=== PATIENT | female | born 1975 | race Caucasian/White ===

== ENCOUNTER 2023-07-19 18:32 | Emergency (ER) | payer OTHER, BC ==
[2023-07-19] MEDS ORDERED: HYDROcodone/Acetaminophen 10/325 mg Tablet ONE (20:03)
== END 2023-07-19 20:25 | disposition home or self-care (01) ==
LOC: ERS 18:32
DX: S52.502A Unspecified fracture of the lower end of left radius, initial encounter for closed fracture (principal); E03.9 Hypothyroidism, unspecified; K21.9 Gastro-esophageal reflux disease without esophagitis; Z79.899 Other long term (current) drug therapy; V89.2XXA Person injured in unspecified motor-vehicle accident, traffic, initial encounter
CPT/HCPCS: 29075

== ENCOUNTER 2023-08-01 10:25 | Outpatient (CLI) | payer BC ==
[2023-08-01 12:24] LABS: #Basophils 0.1 10x3/uL (0.0-0.2); #Eosinphils 0.1 10x3/uL (0.0-0.5); #Monocytes 0.7 10x3/uL (0.0-1.1); #Neutrophils 5.2 10x3/uL (1.5-8.4); %Basophils 0.9 % (0.0-2.0); %Eosinophils 0.9 % (0.0-6.0); %Lymphocytes 27.9 % (18.0-47.0); %Monocytes 8.3 % (0.0-10.0); %Neutrophils 61.3 % (40.0-75.0); Mean Corpuscular HGB CONC 32.5 g/dL (32.0-36.0); Mean Corpuscular Hemoglobin 28.6 pg (27.0-33.0); Mean Corpuscular Volume 88.1 fl (81.6-98.3); Mean Platelet Volume 9.6 fl (7.4-10.4); Platelet Count 290 10x3/uL (150-450); RBC Distribution Width 13.7 % (11.5-14.5); Red Blood Cell (RBC) Count 4.54 10x6/uL (3.90-5.03); White Blood Cell (WBC) Count 8.5 10x3/uL (3.5-10.5)
[2023-08-01 12:46] LABS: Anion Gap 16 mmol/L (10-20); BUN (Urea Nitrogen) 11 mg/dL (7.0-18.7); Calc. Creatinine Clearance 0 mL/min (70-130); Calcium 9.7 mg/dL (7.8-10.44); Carbon Dioxide 23 mmol/L (22-29); Chloride 106 mmol/L (98-107); Estimated GFR 92; Glucose 77 mg/dL (70-105); Potassium 4.7 mmol/L (3.5-5.1); Sodium 140 mmol/L (136-145)
== END 2023-08-01 10:26 | disposition home or self-care (01) ==
LOC: LABBT 10:25
PROVIDERS: ATTEND Orthopaedic Surgery
DX: Z01.812 Encounter for preprocedural laboratory examination (principal); S52.502G Unspecified fracture of the lower end of left radius, subsequent encounter for closed fracture with delayed healing
CPT/HCPCS: 80048; 85025

== ENCOUNTER 2023-08-05 09:35 | Day surgery (SDC) | payer BC ==
[2023-08-01 11:45] VITALS: BMI 33.5
[2023-08-05] MEDS ORDERED: fentaNYL 50 mcg/mL 1 mL Vial ONE (10:21)
[2023-08-05] MEDS ORDERED: Midazolam HCl 2 mg/2 ml Vial ONE (10:22)
[2023-08-05] MEDS ORDERED: Ropivacaine 0.5% HCl/PF (150 MG/30 ML VIAL) ONE (10:22)
[2023-08-05] MEDS ORDERED: Bupivacaine PF 0.5% 30 ML VIAL ONE (10:34)
[2023-08-05] MEDS ORDERED: Sodium Chloride 0.9% 100 ML ONE (10:58)
[2023-08-05] MEDS ORDERED: CEFAZOLIN 2 GM VIAL ONE (10:58)
[2023-08-05] MEDS ORDERED: PROPOFOL 20 ML ONE (11:15)
[2023-08-05] MEDS ORDERED: fentaNYL PF 100 MCG/2 ML SYRINGE ONE (11:15)
[2023-08-05] MEDS ORDERED: Lidocaine 2% PF 5 ML VIAL ONE (11:15)
[2023-08-05] MEDS ORDERED: Hydrocortisone Sod Succ/PF 100 mg/2 ml Vial ONE (11:26)
[2023-08-05] MEDS ORDERED: Ondansetron PF 4 MG/2 ML Vial ONE (11:34)
[2023-08-05] MEDS ORDERED: Ketorolac Tromethamine 30 MG/ML VIAL ONE (12:00)
== END 2023-08-05 14:52 | disposition home or self-care (01) ==
LOC: SDC 09:35
PROVIDERS: ATTEND Orthopaedic Surgery
PROC: 0PSJ04Z Reposition Left Radius with Internal Fixation Device, Open Approach (ICD-10-PCS; principal; 2023-08-05)
DX: S52.502G Unspecified fracture of the lower end of left radius, subsequent encounter for closed fracture with delayed healing (principal); G43.909 Migraine, unspecified, not intractable, without status migrainosus; Z98.890 Other specified postprocedural states; Z79.899 Other long term (current) drug therapy; V89.2XXA Person injured in unspecified motor-vehicle accident, traffic, initial encounter
CPT/HCPCS: C1713; J1720; J1885; J2001; J2250; J2405; J2704; J2795; J3010; J3490; S0020